=== PATIENT | male | born 1995 ===

== ENCOUNTER 2020-07-22 00:41 | Emergency (ER) | payer SELFPAY ==
[2020-07-22 02:04] VITALS: BP 137/70
--- NOTE | 2020-07-22 03:49 | XRay Report ---
LEFT ELBOW 4 VIEWS INDICATION / CLINICAL INFORMATION: left elbow pain. COMPARISON: None available. FINDINGS: BONES/JOINT(S): There is a small elbow joint effusion and there appears to be a nondisplaced radial h ead fracture on one of the oblique views. SOFT TISSUES: No significant abnormality. ADDITIONAL FINDINGS: None. Signer Name: Kody Velazquez MD Signed: 07/22/2020 3:44 AM Workstation Name: [id number]
[2020-07-22] MEDS ORDERED: HYDROcodone/ACETAMINOPHEN 10-325MG TAB PO ONE (07:15)
--- NOTE | 2020-07-22 08:13 | Emergency Department Report ---
ED Upper Extremity Inj HPI - General Chief Complaint: Extremity Injury, Upper Stated Complaint: ELBOW PAINS Time Seen by Provider: 07/22/20 07:06 Source: patient Mode of arrival: Ambulatory Limitations: No Limitations - History of Present Illness Initial Comments: This is a 25-year-old male nontoxic, well nourished in appearance, no acute signs of distress presents to the ED with c/o of left elbow pain 1 day. Patient stated that he hyperextended his elbow which caused the pain. Patient denies any other trauma. Patient denies any numbness, tingling, fever, chills, nausea, vomiting, chest pain, shortness of breath, headache, stiff neck. Patient denies any joint swelling or joint redness. Patient agrees to some decreased range of motion. Patient stated allergies to PCN. MD Complaint: Injury to:: left, elbow -: days(s) Other Extremity Injury: Elbow: Left Severity scale (0 -10): 8 Improves With: immobilization Worsens With: movement of extremity Associated Symptoms: denies other symptoms. denies: weakness, numbness, neck pain, suspects foreign body, nausea/vomiting, heard/felt popping sensat - Related Data Previous Rx's Medication Instructions Recorded Last Taken Type Naproxen 500 mg PO Q12H PRN #12 tablet 07/22/20 Unknown Rx Allergies Allergy/AdvReac Type Severity Reaction Status Date / Time Penicillins Allergy Hives Verified 07/22/20 02:09 ED Review of Systems ROS: Stated complaint: ELBOW PAINS Other details as noted in HPI Constitutional: denies: chills, fever Eyes: denies: eye pain, eye discharge, vision change ENT: denies: ear pain, throat pain Respiratory: denies: cough, shortness of breath, wheezing Cardiovascular: denies: chest pain, palpitations Endocrine: no symptoms reported Gastrointestinal: denies: abdominal pain, nausea, diarrhea Genitourinary: denies: urgency, dysuria Musculoskeletal: denies: back pain, joint swelling, arthralgia Skin: denies: rash, lesions Neurological: denies: headache, weakness, paresthesias Psychiatric: denies: anxiety, depression Hematological/Lymphatic: denies: easy bleeding, easy bruising ED Past Medical Hx - Past Medical History Previous Medical History?: Yes - Surgical History Past Surgical History?: Yes - Social History Smoking Status: Current Every Day Smoker Substance Use Type: None - Medications Home Medications: Home Medications Medication Instructions Recorded Confirmed Last Taken Type Naproxen 500 mg PO Q12H PRN #12 tablet 07/22/20 Unknown Rx ED Physical Exam - General Limitations: No Limitations General appearance: alert, in no apparent distress - Head Head exam: Present: atraumatic, normocephalic - Neck Neck exam: Present: full ROM - Respiratory Respiratory exam: Absent: respiratory distress - Cardiovascular Cardiovascular Exam: Present: regular rate - Extremities Exam Extremities exam: Present: full ROM, tenderness, normal capillary refill. Absent: joint swelling - Expanded Upper Extremity Exam Left General: Present: normal inspection Shoulder Exam: Present: normal inspection, full ROM. Absent: tenderness, swelling Upper Arm exam: Present: normal inspection, full ROM. Absent: tenderness, swelling Elbow exam: Present: full ROM, tenderness. Absent: swelling, abrasion, laceration, ecchymosis, deformity, crepidus, dislocation, erythema, effusion, pain w/ pronation/supination, tenderness over radial head Forearm Wrist exam: Present: normal inspection, full ROM. Absent: tenderness, swelling Hand Wrist exam: Present: normal inspection, full ROM. Absent: tenderness, swelling Vascular: Present: normal capillary refill. Absent: vascular compromise (Neurovascular within normal limits) - Back Exam Back exam: Present: normal inspection, full ROM - Neurological Exam Neurological exam: Present: alert, oriented X3, normal gait - Psychiatric Psychiatric exam: Present: normal affect, normal mood - Skin Skin exam: Present: warm, dry, intact, normal color. Absent: rash ED Course Vital Signs 07/22/20 01:59 Temperature 98.6 F Pulse Rate 74 Respiratory 20 Rate Blood Pressure 137/70 O2 Sat by Pulse 96 Oximetry - Reevaluation(s) Reevaluation #1: 07/22/20 08:11 Patient is speaking in full sentences with no signs of distress noted. ED Medical Decision Making - Radiology Data Referring Physician: ED DOC Patient Name: KASSIDY ROD Date of : 1995 Sex: Male Report Date: 2020-07-22 Report Status: Finalized [facility] [address] [place] [address] XRay Report Signed Patient: KASSIDY ROD MR#: [id number] : 1995 Acct:[id number] Age/Sex: 25 / M ADM Date: 07/22/20 Loc: ED Attending Dr: Ordering Physician: J CARLOS LAUREN MD Date of Service: 07/22/20 Procedure(s): XR elbow 3+V LT Accession Number(s): [id number] cc: J CARLOS LAUREN MD Fluoro Time In Minutes: LEFT ELBOW 4 VIEWS INDICATION / CLINICAL INFORMATION: left elbow pain. COMPARISON: None available. FINDINGS: BONES/JOINT(S): There is a small elbow joint effusion and there appears to be a nondisplaced radial head fracture on one of the oblique views. SOFT TISSUES: No significant abnormality. ADDITIONAL FINDINGS: None. Signer Name: Kody Velazquez MD Signed: 07/22/2020 3:44 AM Workstation Name: [id number] Transcribed By: TYSHAWN Dictated By: Kody Velazquez MD Electronically Authenticated By: Kody Velazquez MD Signed Date/Time: 07/22/20343 DD/ 3 TD/TT: - Medical Decision Making This is a 25-year-old male that presents with left radial fracture. Patient is stable and was examined by me. I referred patient to an orthopedic doctor for further evaluation for possible MRI. X-ray has been obtained and dictated by the radiologist. Patient is notified of the x-ray report with noted by the patient. Patient does have normal gait with no tenderness and no joint swelling. No ecchymosis. no joint redness or swelling. Not warm to touch. No signs of cellulites present. Patient received a long arm splint with sling. Post splint assessment: neurovasular intact; normal cap refill <2 second; normal sensation; denies decreaed sensation; normal ROM of digits.. Patient was instructed to RICE therapy. Patient received [place] for pain and stated that family member will drive the patient home after discharge due to possible drowsiness. Patient is discharged with Naproxen. At time of discharge, the patient does not seem toxic or ill in appearance. No acute signs of distress noted. Patient agrees to discharge treatment plan of care. No further questions noted by the patient. Critical care attestation.: If time is entered above; I have spent that time in minutes in the direct care of this critically ill patient, excluding procedure time. ED Disposition Clinical Impression: Radial head fracture, closed Qualifiers: Encounter type: initial encounter Fracture alignment: nondisplaced Laterality: left Qualified Code(s): S52.125A - Nondisplaced fracture of head of left radius, initial encounter for closed fracture Disposition: TO HOME OR SELFCARE Is pt being admited?: No Does the pt Need Aspirin: No Condition: Stable Instructions: Elbow Fracture in Adults (ED), RICE Therapy (ED), Splint Care (ED) Additional Instructions: Follow-up with a orthopedic doctor in 3-5 days or if symptoms worsen and continue return to emergency room as soon as possible. No physical activity that extremity until cleared by orthopedic doctor Prescriptions: Naproxen 500 mg PO Q12H PRN #12 tablet PRN Reason: Pain , Severe (7-10) Referrals: PRIMARY CAREMD [Primary Care Provider] - 3-5 Days FARRAH URRUTIA MD [Staff Physician] - 3-5 Days Forms: Work/School Release Form(ED)
== END 2020-07-22 08:26 | disposition home or self-care (01) ==
LOC: ED 00:41
DX: S52.125A Nondisplaced fracture of head of left radius, initial encounter for closed fracture (principal); F17.200 Nicotine dependence, unspecified, uncomplicated; Z88.0 Allergy status to penicillin; X58.XXXA Exposure to other specified factors, initial encounter; Y93.89 Activity, other specified; Y92.89 Other specified places as the place of occurrence of the external cause; Y99.8 Other external cause status